=== PATIENT | female | born 1995 | race Caucasian/White ===

== ENCOUNTER 2016-09-15 07:04 | Inpatient (IN) | payer OTHER ==
[~2016-09-15] VITALS: Ht 160 cm; Wt 85.9 kg
--- OUTSIDE RECORDS SUMMARY | 2016-09-19 06:17 | XMS REPORT | Continuity of Care Document ---
Author Author [facility] Organization [facility] Address Unknown Phone Unavailable Allergies, Adverse Reactions, Alerts Substance Reaction Severity Status No Known Drug Allergies Unknown Active Medications Medication Instructions Dosage Effective Dates (start - stop) Status Comments Rhophylac 1,500 unit (300 mcg)/2 mL injection syringe - Active VITAMINS (unknown strength) take 1 tablet by oral route every day - Active Problems Condition Effective Dates (start - stop) Clinical Status Encntr for suprvsn of normal first preg, third trimester - 30 weeks gestation of - Pap Smear Screening, Cervix - Routine Care, Primigravida 10 weeks gestation of - Encntr for suprvsn of normal first preg, third trimester - 28 weeks gestation of - Type AB blood, Rh negative - Maternal care for oth abnlt of cervix, second trimester - Encounter for screening of mother - weeks gestation of - Encntr for suprvsn of normal first preg, second trimester - 24 weeks gestation of - Routine Care, Primigravida 14 weeks gestation of - Routine Care, Primigravida 17 weeks gestation of - Encounter for anatomic survey Encntr for suprvsn of normal first preg, second trimester - 20 weeks gestation of - Encntr for suprvsn of normal first preg, third trimester - Encounter for screening of mother - 32 weeks gestation of - Asthma Active Procedures Procedure Date OB Visit No Charge Results Test Name Date and Time Measure Units Reference Range Abnormal Flag Comments Unknown Advance Directives Directive Yes / No Effective Date File Name Unknown Encounters Encounter Description Practice Location Reason(s) For Visit Diagnoses Date Provider Care Team Members [facility] [address], [place], [id number], tel: [phone] [place] Encntr for suprvsn of normal first preg, third trimesterEncounter for screening of [id number] weeks gestation of Laci Morgan [address] [place] [address] Vance Lindquist, [place], [place] , [address], [place]. tel:[phone] [facility] [address] [place] [address], [id number], [place] tel: [phone] [place] Encntr for suprvsn of normal first preg, third xmmkryzqh94 weeks gestation of Laci Morgan [address] [place] [address] Vance Lindquist, [place], [place], [address], [place]. tel:[phone] [facility] [address], [place], [address], [place] tel: [phone] [place] Encntr for suprvsn of normal first preg, third weeks gestation of pregnancyType AB blood, Rh negative Laci Morgan [address] [place] [address] V[address]quist, [place], [place], [address], [place]. tel: [phone] Referring Provider: Loy Chester [address] [place] [address] Dr Shepard , [place], [place], [id number]. tel:[phone] [facility] [address], [place], [address], [place] tel: [phone] [place] Encntr for suprvsn of normal first preg, second weeks gestation of Laci Morgan [address] [place] [address] Vance Lindquist, [place], [place], [address], [place]. tel:[phone] [facility] [address], [place], [address], [place] tel: [phone] [place] Encntr for suprvsn of normal first preg, second uchytjeqv63 weeks gestation of Laci Morgan [address] [place] [address] Vance Lindquist, [place], [address], [place]. tel:[phone] Referring Provider: oLy Chester [address] [place] [address] Dr Shepard, [place], [address]. tel:[phone] [facility], [address], [place], [place], [address], [place] tel: [phone] [place] Ultrasound Maternal care for oth abnlt of cervix, second trimesterEncounter for screening of rtegrm23 weeks gestation of Laci Morgan [address] [place] [address] Vance Lindquist, [place], [address], [place]. tel:[phone] [facility], [address], [place], [place], [address], [place] tel: [phone] [place] Routine Care, Zjedxafubxdq86 weeks gestation of pregnancyEncounter for anatomic survey Laci Granado[address] V[place], [place], [address], [place]. tel:[phone] [facility], [address], [place], [place], [address], [place] tel: [phone] [place] Routine Care, Msdpwufvbnyp20 weeks gestation of Laci Granado[address] [place], [place] , [address], [place]. tel:[phone] [facility], [address], [place], [place], [address], [place] tel: [phone] [place] Pap Smear Screening, CervixRoutine Care, Wnmpztqkbvid38 weeks gestation of Laci Granado[address] Vance Lindquist, [place], [address], [place]. tel:[phone] Family History Family Member Diagnosis Age At Onset No family history of Colon Cancer No family history of Thyroid Disorder No family history of Pulmonary Embolism No family history of Ovarian Cancer Paternal Grandmother Diabetes No family history of Kidney Disease No family history of Uterine Cancer Mother Hypertension No family history of Venous Thrombosis No family history of Stroke No family history of Breast Cancer No family history of Osteoporosis Maternal Grandmother Diabetes No family history of Lung Disease No family history of Epilepsy No family history of Cardiovascular Disease Immunizations Vaccine Date Status Comments Rhophylac completed Source: New Immunization Record Influenza, injectable, quadrivalent, preservative free, 3 yrs or older 2015 completed Note: work ; Source: Other Provider Payers Payer name Insurance type Covered alliance party ID Authorization(s) [employer] CI [id number] [employer] CI [id number] Social History Type Description Quantity Date Captured Alcohol Use Details No Caffeine Use Details Unknown Tobacco Use Status Unknown Smoking Status Never smoker Vital Signs Date / Time: Height Weight BMI Pulse Rate Blood Pressure Temperature Respiratory Rate Body Surface Area Head Circumference BMI percentile 10:28 AM 173.00 lbs 32.16 kg/meter(2) 128/71 mm[Hg] Chief Complaint And Reason For Visit Unknown Chief Complaint And Reason For Visit Reason For Referral Reason For Referral Unknown Plan Of Care Date Type Action Status Appointment Gregoria Poole BOOKED Appointment Gregoria Poole BOOKED Future Order: Lab Order Pap Smear With HPV Reflex If ASCUS ( [id number]) Ordered Future Order: Radiology Order Complete OB Ultrasound > 14 Weeks ( [id number]) Ordered Future Order: Radiology Order Complete OB Ultrasound > 14 Weeks ( [id number]) Ordered Date Type Problem Goal Intervention Status Start Date Unknown. History Of Present Illness Encounter Date Complaint History Of Present Illness This patient has no known history of present illness Functional Status Encounter Date Functional Assessment Cognitive Assessment Unknown Medications Administered Medication Instructions Dosage Effective Dates (start - stop) Status Comments Drug Treatment Unknown Instructions Date Instruction Additional Information hospital registration genetic testing new ob handbook Zika virus assessment & precautions environmental / work hazards travel use of any medications (including supplements, vitamins, herbs, OTC drugs) domestic violence seat belt use childbirth classes / hospital facilities HIV and other routine tests risk factors identified by history anticipated course of care nutrition and weight gain counseling, special diet toxoplasmosis precautions (cats / raw meat) sexual activity exercise indications for ultrasound influenza vaccine
--- OUTSIDE RECORDS SUMMARY | 2016-09-19 06:17 | XMS REPORT | Continuity of Care Document ---
Author Author [facility] Organization [facility] Address Unknown Phone Unavailable Allergies, Adverse Reactions, Alerts Substance Reaction Severity Status No Known Drug Allergies Unknown Active Medications Medication Instructions Dosage Effective Dates (start - stop) Status Comments VITAMINS (unknown strength) take 1 tablet by oral route every day - Active Problems Condition Effective Dates (start - stop) Clinical Status Pap Smear Screening, Cervix - Routine Care, Primigravida 10 weeks gestation of - Routine Care, Primigravida 14 weeks gestation of - Routine Care, Primigravida Encounter for anatomic survey 17 weeks gestation of - Encntr for suprvsn of normal first preg, second trimester - 20 weeks gestation of - Asthma Active Procedures Procedure Date Unknown Results Test Name Date and Time Measure Units Reference Range Abnormal Flag Comments Unknown Advance Directives Directive Yes / No Effective Date File Name Unknown Encounters Encounter Description Practice Location Reason(s) For Visit Diagnoses Date Provider Care Team Members [facility], [address], [place], [place], [address], [place] tel: [phone] [place] Encntr for suprvsn of normal first preg, second [id number] weeks gestation of Laic Granado. [address] [place] [address] [address], [address], [place]. tel:[phone] Referring Provider: Loy Chester [address] [place] [address] Dr Shepard, [place], [address]. tel:[phone] [facility], [address], [place], [place], [address], [place] tel: [phone] [place] Laci Granado. [address] [place] [address] Vance Lindquist, [place], [id number], [place]. tel:[phone] [facility], [address], [place], [place], [address], [place] tel: [phone] [place] Routine Care, PrimigravidaEncounter for anatomic esmhzf58 weeks gestation of [address] V[place] Lindquist, [place], [id number], [place]. tel:[phone] [facility], [address], [place], [place], [address], [place] tel: [phone] [place] Routine Care, Gbnknunqgprw22 weeks gestation of [address] [place] Lindquist, [place] , [address], [place]. tel:[phone] [facility], [address], [place], [place], [address], [place] tel: [phone] [place] Pap Smear Screening, CervixRoutine Care, Cbhahyfmtpbt33 weeks gestation of [address] V[place] Lindquist, [place], [address], [place]. tel:[phone] Family History Family Member Diagnosis Age At [...] Cardiovascular Disease Immunizations Vaccine Date Status Comments Influenza, injectable, quadrivalent, preservative free, 3 yrs or older 2015 completed Note: work ; Source: Other Provider Payers Payer name Insurance type Covered libertarian ID Authorization(s) Edwin [id number] [facility] Social History Type Description Quantity Date Captured Unknown Vital Signs Date / Time: Height Weight BMI Pulse Rate Blood Pressure Temperature Respiratory Rate Body Surface Area Head Circumference BMI percentile Unknown Chief Complaint And Reason For Visit Unknown Chief Complaint And Reason For Visit Reason For Referral Reason For Referral Unknown Plan Of Care Date Type Action Status Appointment Poole Gregoria BOOKED Future Order: Lab Order Pap Smear With HPV Reflex If ASCUS ( [id number]) Ordered Date Type Problem Goal Intervention Status [...]
--- OUTSIDE RECORDS SUMMARY | 2016-09-19 06:18 | XMS REPORT | Continuity of Care Document ---
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 handling/transport OB Prepayment Agreement Infct antign, chlamydia trac, ampl Neisseria Gonorrhoeae, Amplification OB Panel With An HIV Urine Culture Venpnctr fngr/heel/ear stick routne Cult, bactr, ident isolate, urine Results Test Name Date and Time Measure Units Reference Range Abnormal Flag Comments Panel Description: Hepatitis B virus surface Ag [Presence] in Serum or Plasma by Immunoassay WHITE BLOOD CELL COUNT 10:39:00 10.0 Thousand/uL 3.8-10.8 N RED BLOOD CELL COUNT 10:39:00 3.82 Million/uL 3.80-5.10 N HEMOGLOBIN 10:39:00 11.8 g/dL 11.7-15.5 N HEMATOCRIT 10:39:00 34.9 % 35.0-45.0 L MCV 10:39:00 91.4 fL 80.0-100.0 N MCH 10:39:00 30.9 pg 27.0-33.0 N MCHC 10:39:00 33.8 g/dL 32.0-36.0 N RDW 10:39:00 13.9 % 11.0-15.0 N PLATELET COUNT 10:39:00 208 Thousand/uL 140-400 N MPV 10:39:00 9.0 fL 7.5-11.5 N ABSOLUTE NEUTROPHILS 10:39:00 7240 cells/uL 1217-6908 N ABSOLUTE LYMPHOCYTES 10:39:00 1790 cells/uL 850-3900 N ABSOLUTE MONOCYTES 10:39:00 610 cells/uL 200-950 N ABSOLUTE EOSINOPHILS 10:39:00 330 cells/uL 15-500 N ABSOLUTE BASOPHILS 10:39:00 30 cells/uL 0-200 N NEUTROPHILS 10:39:00 72.4 % N LYMPHOCYTES 10:39:00 17.9 % N MONOCYTES 10:39:00 6.1 % N EOSINOPHILS 10:39:00 3.3 % N BASOPHILS 10:39:00 0.3 % N ANTIBODY SCREEN, RBC W/REFL ID, TITER AND AG 10:39:00 NO ANTIBODIES DETECTED N Reference range No antibodies detected This assay is a screening test for the detection of red blood cell antibodies. The test is not to be used for pretransfusion screening or for the medical management of an alloimmunized . ABO GROUP 10:39:00 AB RH TYPE 10:39:00 RH (D) NEGATIVE RPR (DX) W/REFL TITER AND CONFIRMATORY TESTING 10:39:00 NON- REACTIVE NON-REACTIVE N HEPATITIS B SURFACE ANTIGEN 10:39:00 NON-REACTIVE NON- REACTIVE N RUBELLA ANTIBODY (IGG) 10:39:00 3.63 N Value Interpretation ----- < or= 0.90 Not consistent with Immunity 0.91-1.09 Equivocal > or=1.10 Consistent with Immunity The presence of rubella IgG antibody suggests immunization or past or current infection withrubella virus.Test performed at [facility] [id number] [place] [address]Rdblhqcu: FABIAN CHRISTINE DO,MPH Panel Description: HIV 1/2 ANTIGEN/ANTIBODY,FOURTH GENERATION W/RFL HIV AG/AB, 4TH GEN 10:39:00 NON-REACTIVE NON-REACTIVE N HIV -1 antigen and HIV-1/HIV-2 antibodies were notdetected. There is no laboratory evidence of HIVinfection. PLEASE NOTE: This information has been disclosed toyou from records whose confidentiality may beprotected by state law. If your state requires suchprotection, then the state law prohibits you frommaking any further disclosure of the informationwithout the specific written consent of the personto whom it pertains, or as otherwise permitted by law.A general authorization for the release of medical orother information is NOT sufficient for this purpose. For additional information please refer tohttp:// education.s0cket/faq/DCB000(This link is being provided for informational/educational purposes only.) The performance of this assay has not been clinicallyvalidated in patients less than 2 years old. REPORT COMMENT: FASTING:NOTest performed at [facility] [id number] [place] [address]Phmpkqmn: FABIAN CHRISTINE DO,MPH Panel Description: CULTURE, URINE, ROUTINE CULTURE, URINE, ROUTINE 10:51:00 SEE NOTE CULTURE, URINE, ROUTINE MICRO NUMBER: [id number] TEST STATUS: FINAL SPECIMEN SOURCE: URINE, CLEAN CATCH SPECIMEN QUALITY: ADEQUATE RESULT: Single organism less than 10,000 CFU/mL isolated. These organisms, commonly found on external and internal genitalia, are considered colonizers. No further testing performed.REPORT COMMENT:RFASTING:UNKNOWNTest performed at [facility] [id number] [place] [id number]: FABIAN CHRISTINE DO,MPH Panel Description: Chlamydia trachomatis DNA [Presence] in Unspecified specimen by Probe and target amplification method CHLAMYDIA TRACHOMATIS RNA, [facility] 10:52:00 NOT DETECTED NOT DETECTED N NEISSERIA GONORRHOEAE RNA, [facility] 10:52:00 NOT DETECTED NOT DETECTED N [id number] 10:52:00 SEE NOTE This test was performed using the APTIMA COMBO2 Assay([employer] The analytical performance characteristics of this assay, when used to test SurePath specimens havebeen determined by [employer]. REPORT COMMENT:FASTING:UNKNOWNTest performed at [facility] [id number] [place] [address]Cfcvtxyu: FABIAN CHRISTINE DO,MPH Advance Directives Directive Yes / No Effective Date File Name Unknown Encounters Encounter Description Practice Location Reason(s) For Visit Diagnoses Date Provider Care Team [facility] [address], [place], [address], [place] tel: [phone] [place] [facility], [facility] Uzuoxxdoupzk30 weeks gestation of [address] , [address], [place], [address], [place]. tel:[phone] Family History Family Member Diagnosis Age At [...] Cardiovascular Disease Immunizations Vaccine Date Status Comments Unknown Payers Payer name Insurance type Covered alliance party ID Authorization(s) [facility] [id number] Social History Type Description Quantity Date Captured Alcohol Use Details No Caffeine Use Details No Tobacco Use Status Never smoked tobacco Smoking Status Never smoker Vital Signs Date / Time: Height Weight BMI Pulse Rate Blood Pressure Temperature Respiratory Rate Body Surface Area Head Circumference BMI percentile /10:36:00 142.90 lbs 26.56 kg/meter(2) 130/72 mm[Hg] Chief Complaint And Reason For Visit Unknown Chief Complaint And Reason For Visit Reason For Referral Reason For Referral Unknown Plan Of Care Date Type Action Status Appointment Gregoria Poole BOOKED Future Order: Lab [...]
--- OUTSIDE RECORDS SUMMARY | 2016-09-19 06:18 | XMS REPORT | Continuity of Care Document ---
Author Author [facility] Organization [facility] Address Unknown Phone Unavailable Allergies, Adverse Reactions, Alerts Substance Reaction Severity Status No Known Drug Allergies Unknown Active Medications Medication Instructions Dosage Effective Dates (start - stop) Status Comments VITAMINS (unknown strength) take 1 tablet by oral route every day - Active Problems Condition Effective Dates (start - stop) Clinical Status Routine Care, Primigravida Encounter for anatomic survey 17 weeks gestation of - Pap Smear Screening, Cervix - Routine Care, Primigravida 10 weeks gestation of - Routine Care, Primigravida 14 weeks gestation of - Asthma Active Procedures Procedure Date OB Visit No Charge Results Test Name Date and Time Measure Units Reference Range Abnormal Flag Comments Unknown Advance Directives Directive Yes / No Effective Date File Name Unknown Encounters Encounter Description Practice Location Reason(s) For Visit Diagnoses Date Provider Care Team Members [facility] [employer] [facility], [address], [place], [place], [address], [place] tel: [phone] [place] Routine Care, PrimigravidaEncounter for anatomic dbyyrc16 weeks gestation of [address] V[address] Lindquist, [place], [place], [address], [place]. tel:[phone] [facility], [address], [place], [place], [address], [place] tel: [phone] [place] Routine Care, Lkemvjsenobs79 weeks gestation of [address] V[place] Lindquist, [place], [place] , [address], [place]. tel:[phone] [facility] [employer] [facility], [address], [place], [place], [address], [place] tel: [phone] [place] Pap Smear Screening, CervixRoutine Care, Btwblzgqhpsi60 weeks gestation of Laci [address] [place] Lindquist, [place], [address], [place]. tel:[phone] Family History Family Member Diagnosis Age At [...] Unknown Payers Payer name Insurance type Covered green party ID Authorization(s) [facility] [id number] [facility] Social History Type Description Quantity Date Captured Alcohol Use Details No Caffeine Use Details No Tobacco Use Status Unknown Smoking Status Never smoker Vital Signs Date / Time: Height Weight BMI Pulse Rate Blood Pressure Temperature Respiratory Rate Body Surface Area Head Circumference BMI percentile /14:00:00 148.60 lbs 27.62 kg/meter(2) 126/3 mm[Hg] /14:07:00 148.60 lbs 27.62 kg/meter(2) 126/73 mm[Hg] Chief Complaint And Reason For Visit [...]
--- OUTSIDE RECORDS SUMMARY | 2016-09-19 06:18 | XMS REPORT | Continuity of Care Document ---
Author Author [facility] Organization [facility] [address] [place] [id number] Phone Allergies, Adverse Reactions, Alerts Substance Reaction Severity Status No Known Drug Allergies Unknown Active Medications Medication Instructions Dosage Effective Dates (start - stop) Status Comments VITAMINS (unknown strength) take 1 tablet by oral route every day - Active Problems Condition Effective Dates (start - stop) Clinical Status Maternal care for oth abnlt of cervix, second trimester - Encounter for screening of mother - 20 weeks gestation of - Pap Smear Screening, [...] of - Asthma Active Procedures Procedure Date Ultrasound exam of preg uterus, complete Results Test Name Date and Time Measure Units Reference Range Abnormal Flag Comments Unknown Advance Directives Directive Yes / No Effective Date File Name Unknown Encounters Encounter Description Practice Location Reason(s) For Visit Diagnoses Date Provider Care Team Members [facility] [place], [address], [place], [place], [address], [place] tel: [phone] [place] Encntr for suprvsn of normal first preg, second ceiyphpgs57 weeks gestation of Lcai Morgan [address] [place] [address] [address], [place], [place], [address], [place]. tel:[phone] [facility], [address], [place], [place], [address], [place] tel: [phone] [place] Encntr for suprvsn of normal first preg, second zwvzipkez21 weeks gestation of Laci Morgan [address] [place] [address] [address] Lindquist, [place], [address], [place]. tel:[phone] Referring Provider: Loy Chester [address] [place] [address] Dr Shepard, [place], [place], [address]. tel:[phone] [facility], [address], [place], [address], [place] tel: [phone] [place] Ultrasound Maternal care for oth abnlt of cervix, second trimesterEncounter for screening of wgmygc97 weeks gestation of Laci Morgan [address] [place] [address] Vance L[address]quist, [place], [place], [address], [place]. tel:[phone] [facility], [address], [place], [place], [address], [place] tel: [phone] [place] Routine Care, PrimigravidaEncounter for anatomic uulnrc33 weeks gestation of Laci Morgan [address] [place] [address] [address] Lind[address], [place], [place], [address], [place]. tel:[phone] [facility] [address], [place], [address], [place] tel: [phone] [place] Routine Care, Yhywgwarcloq52 weeks gestation of Laci Morgan [address] [place] [address] [address] Lindquist, [place], [place] , [address], [place]. tel:[phone] [facility], [address], [place], [place], [address], [place] tel: [phone] [place] Pap Smear Screening, CervixRoutine Care, Rvqsespjrfmo04 weeks gestation of Laci Morgan [address] [place] [address] [address], [place], [place], [address], [place]. tel:[phone] Family History Family Member Diagnosis Age At [...] Provider Payers Payer name Insurance type Covered republican ID Authorization(s) [facility] [id number] [facility] Social History Type Description Quantity Date Captured [...] Status Appointment Gregoria Poole BOOKED Future Order: Radiology Order Complete OB Ultrasound > 14 Weeks ( [id number]) Ordered Future Order: Radiology Order Complete OB Ultrasound > 14 Weeks ( [id number]) Ordered Future Order: Lab Order Pap Smear With [...]
--- OUTSIDE RECORDS SUMMARY | 2016-09-19 06:18 | XMS REPORT | Continuity of Care Document ---
Author Author [facility] Organization [facility] Address Unknown Phone Unavailable Allergies, Adverse [...] of normal first preg, third trimester - 37 weeks gestation of - Pap Smear Screening, Cervix - Routine Care, Primigravida 10 weeks gestation of - Encntr for suprvsn of normal first preg, third trimester - 28 weeks gestation of - Type AB blood, Rh negative - Maternal care for oth abnlt of cervix, second trimester - Encounter for screening of mother - 20 weeks gestation of - Maternal care for oth abnlt of cervix, third trimester - 34 weeks gestation of - Encntr for suprvsn [...] trimester - 30 weeks gestation of - Encntr for suprvsn of normal first preg, third trimester - Encounter for screening of mother - 32 weeks gestation of - Encntr for suprvsn of normal first preg, third trimester - 34 weeks gestation of - Encntr for suprvsn of normal first preg, third trimester - Encounter for screening of mother - 36 weeks gestation of - Encntr for suprvsn of normal first preg, third trimester - 38 weeks gestation of - Encntr for suprvsn of normal first preg, third trimester - 39 weeks gestation of - Asthma Active Procedures Procedure Date OB Visit No Charge Results Test Name Date and Time Measure Units Reference Range Abnormal Flag Comments Unknown Advance Directives Directive Yes / No Effective Date File Name Unknown Encounters Encounter Description Practice Location Reason(s) For Visit Diagnoses Date Provider Care Team Members [facility], [address], [place], [place], [address], [place] tel: [phone] [place] Encntr for suprvsn of normal first preg, third qnbqwupag80 weeks gestation of [place] Morgan [address] [place] [address] V[address] Lindquist, [place], [place], [address], [place]. tel:[phone] Referring Provider: Parris Dillard [address] [place] [address] Dr Shepadr, [place], [place] , [id number]. tel:[phone] [facility], [address], [place], [place], [address], [place] tel: [phone] [place] Encntr for suprvsn of normal first preg, third riclelasv09 weeks gestation of [place] Morgan [address] [place] [address] V[place] Lindquist [place], [place], [address], [place]. tel:[phone] Referring Provider: Parris Dillard [address] [place] [address] Dr Shepard [place], [place] , [address]. tel:[phone] [facility], [address], [place], [place], [address], [place] tel: [phone] [place] Encntr for suprvsn of normal first preg, third agaqdkesk45 weeks gestation of [place] Morgan [address] [place] [address] V[place] Lindquist, [place], [place], [address], [place]. tel:[phone] Referring Provider: Parris Dillard [address] [place] [address] Dr Shepard, [place], [place] , [address]. tel:[phone] [facility], [address], [place], [place], [address], [place] tel: [phone] [place] Encntr for suprvsn of normal first preg, third trimesterEncounter for screening of atuiwk75 weeks gestation of Laci Granado. [address] [place] [address] V[place] Lindquist, [place] , [address], [place]. tel:[phone] Referring Provider: Loy Chester [address] [place] [address] Dr Shepard, [place], [place], [address]. tel:[phone] [facility], [address], [place], [place], [address], [place] tel: [phone] [place] Encntr for suprvsn of normal first preg, third zbdusduee02 weeks gestation of L[place] Granado. [address] [place] [address] V[place] Lindquist, [place], [address], [place]. tel:[phone] Referring Provider: Parris Dillard [address] [place] [address] Dr Shepard, [place] , [address]. tel:[phone] [facility], [address], [place], [place], [address], [place] tel: [phone] [place] Ultrasound Maternal care for oth abnlt of cervix, third csmsczmoq00 weeks gestation of Laci Morgan [address] [place] [address] V[place] Lindquist, [place], [address], [place]. tel:[phone] Referring Provider: Parris Dillard [address] [place] [address] Dr Shepard, [place], [place] , [address]. tel:[phone] [facility] [address], [place], [address], [place] tel: [phone] [place] Encntr for suprvsn of normal first preg, third trimesterEncounter for screening of weeks gestation of Laci Morgan [address] [place] [address] V[place] Lindquist, [place] , [address], [place]. tel:[phone] [facility], [address], [place], [address], [place] tel: [phone] [place] Encntr for suprvsn of normal first preg, third yxgfetvat56 weeks gestation of Laci Morgan [address] [place] [address] Vance Lindquist, [place], [address], [place]. tel:[phone] [facility] [address], [place], [address], [place] tel: [phone] [place] Encntr for suprvsn of normal first preg, third unfjpiwjh06 weeks gestation of pregnancyType AB blood, Rh negative Laci Morgan [address] [place] [address] Vance Lindquist, [place], [place], [address], [place]. tel: [phone] Referring Provider: Loy Chester, [address] [place] [address] Dr Shepard , [place], [address]. tel:[phone] [facility] [address], [place], [address], [place] tel: [phone] [place] Encntr for suprvsn of normal first preg, second imcprblxg17 weeks gestation of Laci Morgan [address] [place] [address] Vance Lindquist, [place], [address], [place]. tel:[phone] [facility], [address], [place], [address], [place] tel: [phone] [place] Encntr for suprvsn of normal first preg, second zkhtmylkx95 weeks gestation of Laci Granado[address] [place] Lindquist, [place], [address], [place]. tel:[phone] Referring Provider: Loy Chester [address] [place] [address] Dr Shepard, [place], [address]. tel:[phone] [facility], [address], [place], [place], [address], [place] tel: [phone] [place] Ultrasound Maternal care for oth abnlt of cervix, second trimesterEncounter for screening of gykgjl34 weeks gestation of Laci Granado[address] V[place] Lindquist, [place], [address], [place]. tel:[phone] [facility], [address], [place], [place], [address], [place] tel: [phone] [place] Routine Care, Qdxjdrsfpjse84 weeks gestation of pregnancyEncounter for anatomic survey Laci Granado[address] [place] Linduqist, [place], [address], [place]. tel:[phone] [facility], [address], [place], [place], [address], [place] tel: [phone] [place] Routine Care, Gwciilypveqe26 weeks gestation of Laci Granado[address] [place], [place] , [address], [place]. tel:[phone] [facility], [address], [place], [place], [address], [place] tel: [phone] [place] Pap Smear Screening, CervixRoutine Care, Yrctzwmaiars25 weeks gestation of Laci Granado[address] [place], [place], [address], [place]. tel:[phone] Family History Family Member Diagnosis Age At [...] Cardiovascular Disease Immunizations Vaccine Date Status Comments Tdap completed Source: New Immunization Record Rhophylac completed Source: New Immunization Record Influenza, injectable, quadrivalent, preservative free, 3 yrs or older 2015 completed Note: work ; Source: Other Provider Payers Payer name Insurance type Covered green party ID Authorization(s) Aetna CI [id number] Aetna CI [id number] Aetna CI [id number] Social History Type Description Quantity Date Captured Alcohol Use Details No Caffeine Use Details Unknown Tobacco Use Status Unknown Smoking Status Never smoker Vital Signs Date / Time: Height Weight BMI Pulse Rate Blood Pressure Temperature Respiratory Rate Body Surface Area Head Circumference BMI percentile 3:10 PM 184.80 lbs 34.35 kg/meter(2) 125/70 mm[Hg] Chief Complaint And Reason For Visit Unknown Chief Complaint And Reason For Visit Reason For Referral Reason For Referral Unknown Plan Of Care Date Type Action Status Future Order: Lab Order Pap Smear With HPV Reflex If ASCUS ( [id number]) Ordered Future Order: Radiology Order Complete OB Ultrasound > 14 Weeks ( [id number]) Ordered Future Order: Radiology Order Complete OB Ultrasound > 14 Weeks ( [id number]) Ordered Future Order: Radiology Order Ultrasound OB Follow-up ([id number]) Ordered Date Type Problem Goal Intervention Status [...]
--- OUTSIDE RECORDS SUMMARY | 2016-09-19 06:18 | XMS REPORT | Continuity of Care Document ---
Author Author [facility] Organization [facility] Address Unknown Phone Unavailable Allergies, Adverse [...] trimester - 34 weeks gestation of - Pap Smear Screening, Cervix - Routine Care, Primigravida 10 weeks gestation of - Encntr for suprvsn of normal first preg, third trimester - 28 weeks gestation of - Type AB blood, Rh negative - Maternal care for oth abnlt of cervix, second trimester - Encounter for screening of mother - 20 weeks gestation of - Encntr [...] trimester - 30 weeks gestation of - Asthma Active Procedures Procedure Date Ultrasnd preg uterus, flwup/repeat Results Test Name Date and Time Measure Units Reference Range Abnormal Flag Comments Unknown Advance Directives Directive Yes / No Effective Date File Name Unknown Encounters Encounter Description Practice Location Reason(s) For Visit Diagnoses Date Provider Care Team Members [facility], [address], [place], [place], [address], [place] tel: [phone] [place] Encntr for suprvsn of normal first preg, third trimesterEncounter for screening of edekxr56 weeks gestation of Laci Morgan [address] [place] [address] Vance Lindquist, [place], [place] , [address], [place]. tel:[phone] Referring Provider: Loy Chester [address] [place] [address] Dr Shepard, [place], [place], [address]. tel:[phone] [facility], [address], [place], [place], [address], [place] tel: [phone] [place] Encntr for suprvsn of normal first preg, third iymfsmtlg90 weeks gestation of Laci Morgan [address] [place] [address] Vance Lindquist, [place], [place], [address], [place]. tel:[phone] Referring Provider: Parris Dillard [address] [place] [address] Dr Shepard, [place], [place] , [address]. tel:[phone] [facility], [address], [place], [place], [address], [place] tel: [phone] [place] Ultrasound Maternal care for oth abnlt of cervix, third sqncqcven06 weeks gestation of Laci Morgan [address] [place] [address] V[place]quist [place], [address], [place]. tel:[phone] Referring Provider: Parris Dillard [address] [place] [address] Dr Shepard, [place], [place] , [address]. tel:[phone] [facility], [address], [place], [address], [place] tel: [phone] [place] Encntr for suprvsn of normal first preg, third trimesterEncounter for screening of weeks gestation of Laci Morgan [address] [place] [address] Vance Lindquist, [place], [place] , [address], [place]. tel:[phone] [facility] [address], [place], [address], [place] tel: [phone] [place] Encntr for suprvsn of normal first preg, third bxjzkipiv68 weeks gestation of Laci Morgan [address] [place] [address] Vance Lindquist, [place], [place], [address], [place]. tel:[phone] [facility], [address], [place], [address], [place] tel: [phone] [place] Encntr for suprvsn of normal first preg, third fgpyfjplt44 weeks gestation of pregnancyType AB blood, Rh negative Laci Morgan [address] [place] [address] Vance Lindquist, [place], [place], [address], [place]. tel: [phone] Referring Provider: Loy Chester [address] [place] [address] Dr Shepard , [place], [place], [address]. tel:[phone] [facility], [address], [place], [address], [place] tel: [phone] [place] Encntr for suprvsn of normal first preg, second fboeeewqx91 weeks gestation of Laci Morgan [address] [place] [address] Vance Lindquist, [place], [place], [address], [place]. tel:[phone] [facility], [address], [place], [address], [place] tel: [phone] [place] Encntr for suprvsn of normal first preg, second ndldcotkj91 weeks gestation of Laci Morgan [address] [place] [address] Vance Lindquist, [place], [address], [place]. tel:[phone] Referring Provider: Loy Chester [address] [place] [address] Dr Shepard, [place], [place], [address]. tel:[phone] [facility], [address], [place], [address], [place] tel: [phone] [place] Ultrasound Maternal care for oth abnlt of cervix, second trimesterEncounter for screening of pnylis34 weeks gestation of Laci Morgan [address] [place] [address] Vance Lindquist, [place], [place], [address], [place]. tel:[phone] [facility], [address], [place], [address], [place] tel: [phone] [place] Routine Care, PrimigravidaEncounter for anatomic rqjips49 weeks gestation of Laci Morgan [address] [place] [address] V[place] Lindquist, [place], [address], [place]. tel:[phone] [facility], [address], [place], [place], [address], [place] tel: [phone] [place] Routine Care, Ivaaoazupvng30 weeks gestation of Laci Morgan [address] [place] [address] V[place] Lindquist, [place] , [address], [place]. tel:[phone] [facility] [address], [place], [place], [address], [place] tel: [phone] [place] Pap Smear Screening, CervixRoutine Care, Cjbmrwwlytjp11 weeks gestation of Laci Morgan [address] [place] [address] V[place] Lindquist, [place], [address], [place]. tel:[phone] Family History Family Member Diagnosis Age At [...] Covered alliance party ID Authorization(s) [employer]et[employer] CI [id number] Aetna CI [id number] Aetna CI [id number] Social History Type Description Quantity Date Captured [...] Gregoria Poole BOOKED Future Order: Radiology Order Ultrasound OB Follow-up ([id number]) Ordered Future Order: Lab Order Pap Smear With HPV Reflex If ASCUS ( WPMPap1) Ordered Future Order: Radiology Order Complete OB Ultrasound > 14 Weeks ( [id number]) Ordered Future Order: Radiology Order Complete OB Ultrasound > 14 Weeks ( [id number]) Ordered Date Type Problem Goal Intervention Status [...]
--- OUTSIDE RECORDS SUMMARY | 2016-09-19 06:18 | XMS REPORT | Continuity of Care Document ---
Author Author [facility] Organization [facility] Address Unknown Phone Unavailable Allergies, Adverse [...] mother - 36 weeks gestation of - Pap Smear Screening, Cervix - Routine Care, Primigravida 10 weeks gestation of - Encntr for suprvsn of normal first preg, third trimester - Type AB blood, Rh negative - 28 weeks gestation of - Maternal care for [...] trimester - 37 weeks gestation of - Encntr for suprvsn of normal first preg, third trimester - 34 weeks gestation of - Encntr for suprvsn of normal first preg, third trimester - 39 weeks gestation of - Encntr for suprvsn of normal first preg, third trimester - 30 weeks gestation of - Asthma Active Procedures Procedure Date Immuniz admnin, 1 vac, sngl/combo 19 Yrs + TDAP VACCINE >7 IM OB Visit No Charge Cult, pathgnc orgnsm, screen Results Test Name Date and Time Measure Units Reference Range Abnormal Flag Comments Panel Description: STREPTOCOCCUS, GROUP B CULTURE STREPTOCOCCUS, GROUP B CULTURE 15:44:00 SEE NOTE STREPTOCOCCUS, GROUP B CULTURE MICRO NUMBER: [id number] TEST STATUS: FINAL SPECIMEN SOURCE: VAGINAL/ANORECTAL SPECIMEN QUALITY: ADEQUATE RESULT: No group B Streptococcus isolatedREPORT COMMENT:FASTING: UNKNOWNTest performed at [facility] [id number] [place] [address]Stqdedhv: FABIAN CHRISTINE DO,MPH Advance Directives Directive Yes / No Effective Date File Name Unknown Encounters Encounter Description Practice Location Reason(s) For Visit Diagnoses Date Provider Care Team Members [facility], [address], [place], [place], [address], [place] tel: [phone] [place] Encntr for suprvsn of normal first preg, third hgufoaoas37 weeks gestation of Laci Granado[address] , [address], [place], [address], [place]. tel:[phone] Referring Provider: Parris Dillard [address] [place] [address] Dr Shepard, [place] , [address]. tel:[phone] [facility] [address] [place] [address], [id number], [place] tel: [phone] [place] Encntr for suprvsn of normal first preg, third mrhnslojr42 weeks gestation of Laci Morgan [address] [place] [address] [place], [address], [place]. tel:[phone] Referring Provider: Parris Dillard[address] Shepard, [place], [place] , [address]. tel:[phone] [facility] [address] [facility], [address], [place] tel: [phone] [place] Encntr for suprvsn of normal first preg, third otrtaamre33 weeks gestation of Laci Morgan [address] [place] [address] [place], [address], [place]. tel:[phone] Referring Provider: Parris Dillard [address] [place] [address] [place] , [address]. tel:[phone] [facility] [address], [place], [address], [place] tel: [phone] [place] Encntr for suprvsn of normal first preg, third trimesterEncounter for screening of ymmcld42 weeks gestation of Laci Morgan [address] [place] [address] [place] , [address], [place]. tel:[phone] Referring Provider: Loy Chester [address] [place] [address] [place], [address]. tel:[phone] [facility], [address], [place], [place], [address], [place] tel: [phone] [place] Encntr for suprvsn of normal first preg, third psblkkosu95 weeks gestation of Laci Morgan [address] [place] [address] [place], [address], [place]. tel:[phone] Referring Provider: Parris Dillard [address] [place] [address] Dr Shepard, [place], [place] , [address]. tel:[phone] [facility] [address] [place] [address], [id number], [place] tel: [phone] [place] Ultrasound Maternal care for oth abnlt of cervix, third miaccdyiy00 weeks gestation of Laci Morgan [address] [place] [address] V[place] Lindquist, [place], [place], [address], [place]. tel:[phone] Referring Provider: Parris Dillard [address] [place] [address] Dr Shepard, [place], [place] , [address]. tel:[phone] [facility] [address] [place] [address], [id number], [place] tel: [phone] [place] Encntr for suprvsn of normal first preg, third trimesterEncounter for screening of hadrrz20 weeks gestation of Laci Granado[address] [place] Lindquist, [place], [place] , [address], [place]. tel:[phone] [facility] [address] [place] [address], [id number], [place] tel: [phone] [place] Encntr for suprvsn of normal first preg, third weeks gestation of Laci Morgan [address] [place] [address] V[place] Lindquist, [place], [place], [address], [place]. tel:[phone] [facility] [address], [place], [address], [place] tel: [phone] [place] Encntr for suprvsn of normal first preg, third trimesterType AB blood, Rh ggpxnxpe34 weeks gestation of Laci Morgan [address] [place] [address] V[place] [address]quist, [place], [place], [address], [place]. tel: [phone] Referring Provider: Loy Chester [address] [place] [address] Dr Shepard , [place], [place], [address]. tel:[phone] [facility], [address], [place], [place], [address], [place] tel: [phone] [place] Encntr for suprvsn of normal first preg, second aoxaigvkk77 weeks gestation of Laci Morgan [address] [place] [address] [address], [place], [address], [place]. tel:[phone] [facility], [address], [place], [place], [address], [place] tel: [phone] [place] Encntr for suprvsn of normal first preg, second iyqyhvxey46 weeks gestation of Laci Morgan [address] [place] [address] [address], [place], [address], [place]. tel:[phone] Referring Provider: Loy Chester [address] [place] [address] Dr Shepard, [place], [address]. tel:[phone] [facility], [address], [place], [place], [address], [place] tel: [phone] [place] Ultrasound Maternal care for oth abnlt of cervix, second trimesterEncounter for screening of draitt94 weeks gestation of Laci Morgan [address] [place] [address] [address] [address]quist, [place], [address], [place]. tel:[phone] [facility], [address], [place], [place], [address], [place] tel: [phone] [place] Routine Care, Itlcsistyncm79 weeks gestation of pregnancyEncounter for anatomic survey Laci Morgan [address] [place] [address] [place] Lindquist, [place], [address], [place]. tel:[phone] [facility], [address], [place], [place], [address], [place] tel: [phone] [place] Routine Care, Tclqmhvbnkpz92 weeks gestation of Laci Morgan [address] [place] [address] V[place]quist, [place] , [address], [place]. tel:[phone] [facility] [address], [place], [place], [address], [place] tel: [phone] [place] Pap Smear Screening, CervixRoutine Care, Lkzyhvcfrrgn76 weeks gestation of [place] Granado[address] , [address], [place], [address], [place]. tel:[phone] Family History Family Member Diagnosis Age At [...] name Insurance type Covered republican ID Authorization(s) A[employer]na CI [id number] Aetna CI [id number] Aetna CI [id number] Social History Type Description Quantity Date Captured Alcohol Use Details No Caffeine Use Details Unknown Tobacco Use Status Unknown Smoking Status Never smoker Vital Signs Date / Time: Height Weight BMI Pulse Rate Blood Pressure Temperature Respiratory Rate Body Surface Area Head Circumference BMI percentile 3:16 PM 181.50 lbs 33.73 kg/meter(2) 118/64 mm[Hg] Chief Complaint And Reason For Visit Unknown Chief Complaint And Reason For Visit Reason For Referral Reason For Referral Unknown Plan Of Care Date Type Action Status Future Order: Lab Order Pap Smear With HPV Reflex If ASCUS ( WPMPap1) Ordered Future Order: Radiology Order Complete OB Ultrasound > 14 Weeks ( [id number]) Ordered Future Order: Radiology Order Complete OB Ultrasound > 14 Weeks ( [id number]) Ordered Future Order: Radiology Order Ultrasound OB Follow-up ([id number]) Ordered Date Type Problem Goal Intervention Status [...]
--- OUTSIDE RECORDS SUMMARY | 2016-09-19 06:18 | XMS REPORT | Continuity of Care Document ---
Author Author [facility] Organization [facility] [place] Address Unknown Phone Unavailable Allergies, Adverse Reactions, [...] trimester - 20 weeks gestation of - Pap Smear Screening, Cervix - Routine Care, Primigravida 10 weeks gestation of - Maternal care for oth abnlt of cervix, second trimester - Encounter for screening of mother - 20 weeks gestation of - Routine Care, Primigravida 14 weeks gestation of - Routine Care, Primigravida Encounter for anatomic survey 17 weeks gestation of - Asthma Active Procedures Procedure Date OB Visit No Charge Results Test Name Date and Time Measure Units Reference Range Abnormal Flag Comments Unknown Advance Directives Directive Yes / No Effective Date File Name Unknown Encounters Encounter Description Practice Location Reason(s) For Visit Diagnoses Date Provider Care Team Members [facility] [place], [address], [place], [place], [address], [place] tel: [phone] [place] Encntr for suprvsn of normal first preg, second cqabtgxfm28 weeks gestation of Laci Granado. [address] [place] [address] [address], [place], [place], [address], [place]. tel:[phone] Referring Provider: Loy Chester [address] [place] [address] Dr [address], [place], [place], [address]. tel:[phone] [facility], [address], [place], [place], [address], [place] tel: [phone] [place] Ultrasound Maternal care for oth abnlt of cervix, second trimesterEncounter for screening of weeks gestation of [address] Vance Lindquist, [place], [place], [address], [place]. tel:[phone] [facility], [address], [place], [place], [address], [place] tel: [phone] [place] Routine Care, PrimigravidaEncounter for anatomic jhqkuu60 weeks gestation of [address] Vance Lindquist, [place], [place], [address], [place]. tel:[phone] [facility], [address], [place], [place], [address], [place] tel: [phone] [place] Routine Care, Trvbqusemywo38 weeks gestation of [address] V[address] Lindquist, [place] , [address], [place]. tel:[phone] [facility], [address], [place], [place], [address], [place] tel: [phone] [place] Pap Smear Screening, CervixRoutine Care, Seplrftpqgny55 weeks gestation of [address] Vance Lindquist, [place], [address], [place]. tel:[phone] Family History Family Member Diagnosis Age At [...] name Insurance type Covered republican ID Authorization(s) Edwin CAPONE [id number] [facility] Social History Type Description Quantity Date Captured Alcohol Use Details No Caffeine Use Details No Tobacco Use Status Unknown Smoking Status Never smoker Vital Signs Date / Time: Height Weight BMI Pulse Rate Blood Pressure Temperature Respiratory Rate Body Surface Area Head Circumference BMI percentile /14:24:00 152.90 lbs 28.42 kg/meter(2) 127/75 mm[Hg] Chief Complaint And Reason For Visit Unknown Chief Complaint And Reason For Visit Reason For Referral Reason For Referral Unknown Plan Of Care Date Type Action Status Appointment Gregoria Poole BOOKED Future Order: Lab Order Pap Smear With HPV Reflex If ASCUS ( [id number]) Ordered Future Order: Radiology Order Complete OB Ultrasound > 14 Weeks ( [id number]) Ordered Date Type Problem Goal Intervention Status [...]
--- OUTSIDE RECORDS SUMMARY | 2016-09-19 06:18 | XMS REPORT | Continuity of Care Document ---
Author Author [facility] Organization [facility] Address Unknown Phone Unavailable Allergies, Adverse [...] trimester - 24 weeks gestation of - Pap Smear Screening, [...] Date Provider Care Team Members [facility] [place], [address], [place], [place], [address], [place] tel: [phone] [place] Encntr for suprvsn of normal first preg, second emeirbapq13 weeks gestation of Laci Granado[address] , [address], [place], [place], [address], [place]. tel:[phone] [facility], [address], [place], [place], [address], [place] tel: [phone] [place] Encntr for suprvsn of normal first preg, second dpgbebwqx42 weeks gestation of Laci Morgan [address] [place] [address] [address], [place], [address], [place]. tel:[phone] Referring Provider: Loy Chester [address] [place] [address] Dr Shepard, [place], [address]. tel:[phone] [facility], [address], [place], [place], [address], [place] tel: [phone] [place] Ultrasound Maternal care for oth abnlt of cervix, second trimesterEncounter for screening of weeks gestation of Laci Morgan [address] [place] [address] [address], [place], [address], [place]. tel:[phone] [facility] [address], [place], [place], [address], [place] tel: [phone] [place] Routine Care, PrimigravidaEncounter for anatomic ruowde96 weeks gestation of Laci Morgan [address] [place] [address] [address], [place], [address], [place]. tel:[phone] [facility], [address], [place], [place], [address], [place] tel: [phone] [place] Routine Care, Qvsyubthvkni73 weeks gestation of Laci Morgan [address] [place] [address] [address], [place] , [address], [place]. tel:[phone] [facility], [address], [place], [place], [address], [place] tel: [phone] [place] Pap Smear Screening, CervixRoutine Care, Fmdoqaiuvfyu24 weeks gestation of Laci Morgan [address] [place] [address] [address], [place], [address], [place]. tel:[phone] Family History Family Member Diagnosis Age At [...] Insurance type Covered alliance party ID Authorization(s) [id number] Social History Type Description Quantity Date Captured Alcohol Use Details No Caffeine Use Details No Tobacco Use Status Unknown Smoking Status Never smoker Vital Signs Date / Time: Height Weight BMI Pulse Rate Blood Pressure Temperature Respiratory Rate Body Surface Area Head Circumference BMI percentile /14:04:00 156.90 lbs 29.16 kg/meter(2) 135/67 mm[Hg] Chief Complaint And Reason For Visit Unknown Chief Complaint And Reason For Visit Reason For Referral Reason For Referral Unknown Plan Of Care Date Type Action Status Appointment Gregoria Poole BOOKED Future Order: Lab Order Pap Smear With HPV Reflex If ASCUS ( WPMPap1) Ordered Future Order: Radiology Order Complete OB Ultrasound > 14 Weeks ( [id number]) Ordered Future Order: Radiology Order Complete OB Ultrasound > 14 Weeks ( [id number]) Ordered Date Type Problem Goal Intervention Status [...]
--- OUTSIDE RECORDS SUMMARY | 2016-09-19 06:18 | XMS REPORT | Continuity of Care Document ---
Author Author [facility] Organization [facility] Address Unknown Phone Unavailable Allergies, Adverse [...] of mother - weeks gestation of - Maternal care for [...] Date Provider Care Team Members [facility], [address], [place], [place], [address], [place] tel: [phone] [place] Encntr for suprvsn of normal first preg, third trimesterEncounter for screening of weeks gestation of Laci Morgan [address] [place] [address] [address], [place], [place] , [address], [place]. tel:[phone] Referring Provider: Loy Chester [address] [place] [address] Dr Shepard, [place], [place], [address]. tel:[phone] [facility], [address], [place], [place], [address], [place] tel: [phone] [place] Encntr for suprvsn of normal first preg, third cgbnwyhxd56 weeks gestation of Laci Morgan [address] [place] [address] [address], [place], [place], [address], [place]. tel:[phone] Referring Provider: Parris Dillard [address] [place] [address] Dr Shepard, [place], [place] , [address]. tel:[phone] [facility], [address], [place], [place], [address], [place] tel: [phone] [place] [facility]trasound Maternal care for oth abnlt of cervix, third uoxvozmnm56 weeks gestation of Laci Morgan [address] [place] [address] [address], [place], [place], [address], [place]. tel:[phone] Referring Provider: Parris Dillard, [address] [place] [address] Dr Shepard, [place], [place] , [address]. tel:[phone] [facility], [address], [place], [place], [address], [place] tel: [phone] [place] Encntr for suprvsn of normal first preg, third trimesterEncounter for screening of lyxozc41 weeks gestation of Laci Morgan [address] [place] [address] [address], [place] , [address], [place]. tel:[phone] [facility] [address], [place], [address], [place] tel: [phone] [place] Encntr for suprvsn of normal first preg, third jdztaxecg50 weeks gestation of Laci Morgan [address] [place] [address] [address], [place], [address], [place]. tel:[phone] [facility], [address], [place], [address], [place] tel: [phone] [place] Encntr for suprvsn of normal first preg, third bvfctjbce34 weeks gestation of pregnancyType AB blood, Rh negative Laci Morgan [address] [place] [address] [address], [place], [address], [place]. tel: [phone] Referring Provider: Loy Chester [address] [place] [address] Dr Shepard , [place], [address]. tel:[phone] [facility], [address], [place], [address], [place] tel: [phone] [place] Encntr for suprvsn of normal first preg, second ofolskbag51 weeks gestation of Laci Morgan [address] [place] [address] [address], [place], [address], [place]. tel:[phone] [facility], [address], [place], [address], [place] tel: [phone] [place] Encntr for suprvsn of normal first preg, second weeks gestation of Laci Morgan [address] [place] [address] [address], [place], [address], [place]. tel:[phone] Referring Provider: Loy Chester [address] [place] [address] Dr Shepard, [place], [address]. tel:[phone] [facility], [address], [place], [place], [address], [place] tel: [phone] [place] Ultrasound Maternal care for oth abnlt of cervix, second trimesterEncounter for screening of weeks gestation of Laci Morgan [address] [place] [address] [address], [place], [place], [address], [place]. tel:[phone] [facility], [address], [place], [place], [address], [place] tel: [phone] [place] Routine Care, PrimigravidaEncounter for anatomic weeks gestation of Laci Morgan [address] [place] [address] [address], [place], [address], [place]. tel:[phone] [facility], [address], [place], [place], [address], [place] tel: [phone] [place] Routine Care, Xmtlazemhodr53 weeks gestation of Laci Morgan [address] [place] [address] [address], [place] , [address], [place]. tel:[phone] [facility], [address], [place], [place], [address], [place] tel: [phone] [place] Pap Smear Screening, CervixRoutine Care, Njfydodqaoif60 weeks gestation of Laci Morgan [address] [place] [address] [address], [place], [address], [place]. tel:[phone] Family History Family Member Diagnosis Age At [...] type Covered republican ID Authorization(s) [employer] CI [id number] Aet[employer] CI [id number] [employer] CI [id number] Social History Type Description Quantity Date Captured Alcohol Use Details No Caffeine Use Details Unknown Tobacco Use Status Unknown Smoking Status Never smoker Vital Signs Date / Time: Height Weight BMI Pulse Rate Blood Pressure Temperature Respiratory Rate Body Surface Area Head Circumference BMI percentile 2:44 PM 175.30 lbs 32.58 kg/meter(2) 128/80 mm[Hg] Chief Complaint And Reason For Visit Unknown Chief Complaint And Reason For Visit Reason For Referral Reason For Referral Unknown Plan Of Care Date Type Action Status Appointment Gregoria Poole BOOKED Future Order: Lab Order Pap Smear With HPV Reflex If ASCUS ( WPMPap1) Ordered Future Order: Radiology Order Complete OB Ultrasound > 14 Weeks ( [id number]) Ordered Future Order: Radiology Order Complete OB Ultrasound > 14 Weeks ( [id number]) Ordered Future Order: Radiology Order Ultrasound OB Follow-up ([id number]) Ordered Date Type Problem Goal Intervention Status [...]
--- OUTSIDE RECORDS SUMMARY | 2016-09-19 06:19 | XMS REPORT | Continuity of Care Document ---
Author Author [facility] Organization [facility] Address Unknown Phone Unavailable Allergies, Adverse [...] mother - 32 weeks gestation of - Pap Smear Screening, Cervix - Routine Care, Primigravida 10 weeks gestation of - Encntr for suprvsn of normal first preg, third trimester - Type AB blood, Rh negative - 28 weeks gestation of - Maternal care for oth abnlt of cervix, second trimester - weeks gestation of - Encounter for screening of mother - Maternal care for oth abnlt of cervix, third trimester - 34 weeks gestation of - Routine Care, Primigravida 14 weeks gestation of - Routine Care, Primigravida 17 weeks gestation of - Encounter for anatomic survey Encntr for suprvsn of normal first preg, second trimester - 20 weeks gestation of - Encntr for suprvsn of normal first preg, second trimester - 24 weeks gestation of - Encntr for suprvsn of normal first preg, third trimester - 30 weeks gestation of - Encntr for suprvsn of normal first preg, third trimester - 34 weeks gestation of - Asthma Active Procedures Procedure Date OB Visit No Charge Results Test Name Date and Time Measure Units Reference Range Abnormal Flag Comments Unknown Advance Directives Directive Yes / No Effective Date File Name Unknown Encounters Encounter Description Practice Location Reason(s) For Visit Diagnoses Date Provider Care Team Members [facility], [address], [place], [address], [place] tel: [phone] [place] Encntr for suprvsn of normal first preg, third ngmymupkp71 weeks gestation of Laci Morgan [address] [place] [address] [address], [place], [place], [address], [place]. tel:[phone] Referring Provider: Parris Dillard [address] [place] [address] Dr Shepard, [place], [place] , [address]. tel:[phone] [facility], [address], [place], [address], [place] tel: [phone] [place] Ultrasound Maternal care for oth abnlt of cervix, third lbwjeqhcw90 weeks gestation of Laci Morgan [address] [place] [address] [address], [place], [place], [address], [place]. tel:[phone] Referring Provider: Parris Dillard [address] [place] [address] Dr Shepard, [place], [place] , [address]. tel:[phone] [facility], [address], [place], [place], [address], [place] tel: [phone] [place] Encntr for suprvsn of normal first preg, third trimesterEncounter for screening of akoaqo78 weeks gestation of Laci Morgan [address] [place] [address] [address], [place], [place] , [address], [place]. tel:[phone] [facility], [address], [place], [place], [address], [place] tel: [phone] [place] Encntr for suprvsn of normal first preg, third ysqrtlrll46 weeks gestation of Laci Morgan [address] [place] [address] [address], [place], [address], [place]. tel:[phone] [facility], [address], [place], [place], [address], [place] tel: [phone] [place] Encntr for suprvsn of normal first preg, third trimesterType AB blood, Rh weeks gestation of Laci Morgan [address] [place] [address] [address], [place], [address], [place]. tel: [phone] Referring Provider: Loy Chester [address] [place] [address] Dr Shepard , [place], [place], [address]. tel:[phone] [facility], [address], [place], [address], [place] tel: [phone] [place] Encntr for suprvsn of normal first preg, second wgovcjgfi18 weeks gestation of Laci Morgan [address] [place] [address] [address], [place], [address], [place]. tel:[phone] [facility], [address], [place], [place], [address], [place] tel: [phone] [place] Encntr for suprvsn of normal first preg, second qcvpoeygb60 weeks gestation of Laci Morgan [address] [place] [address] [address], [place], [address], [place]. tel:[phone] Referring Provider: Loy Chester [address] [place] [address] Dr Shepard, [place], [address]. tel:[phone] [facility], [address], [place], [address], [place] tel: [phone] [place] Ultrasound Maternal care for oth abnlt of cervix, second lmzjguutr26 weeks gestation of pregnancyEncounter for screening of mother Laci Morgan [address] [place] [address] [address], [place], [address], [place]. tel:[phone] [facility], [address], [place], [place], [address], [place] tel: [phone] [place] Routine Care, Wvywxurpqtrm12 weeks [facility] for an[facility] survey [address], [place], [address], [place]. tel:[phone] [facility], [address], [place], [place], [address], [place] tel: [phone] [place] Routine Care, Hibpczxdzkbr45 weeks gestation of [address], [place] , [address], [place]. tel:[phone] [facility], [address], [place], [place], [address], [place] tel: [phone] [place] Pap Smear Screening, CervixRoutine Care, Zvyyjucedobl93 weeks gestation of [address], [place], [address], [place]. tel:[phone] Family History Family Member Diagnosis Age At [...] Covered green party ID Authorization(s) [employer] CI [id number] Aet[employer] CI [id number] Social History Type Description Quantity Date Captured Alcohol Use Details No Caffeine Use Details Unknown Tobacco Use Status Unknown Smoking Status Never smoker Bhavik-19-2017 Vital Signs Date / Time: Height Weight BMI Pulse Rate Blood Pressure Temperature Respiratory Rate Body Surface Area Head Circumference BMI percentile 3:25 PM 174.50 lbs 32.43 kg/meter(2) 138/78 mm[Hg] Chief Complaint And Reason For Visit Unknown Chief Complaint And Reason For Visit Reason For Referral Reason For Referral Unknown Plan Of Care Date Type Action Status Appointment Gregoria Poole BOOKED Future Order: Lab Order Pap Smear With HPV Reflex If ASCUS ( WPMPap1) Ordered Future Order: Radiology Order Complete OB Ultrasound > 14 Weeks ( [id number]) Ordered Future Order: Radiology Order Complete OB Ultrasound > 14 Weeks ( [id number]) Ordered Future Order: Radiology Order Ultrasound OB Follow-up ([id number]) Ordered Date Type Problem Goal Intervention Status [...]
--- OUTSIDE RECORDS SUMMARY | 2016-09-19 06:19 | XMS REPORT | Continuity of Care Document ---
Author Author [facility] [place] Organization [facility] [place] Address Unknown Phone Unavailable Allergies, Adverse Reactions, Alerts Substance Reaction Severity Status No Known Drug Allergies Unknown Active Medications Medication Instructions Dosage Effective Dates (start - stop) Status Comments VITAMINS (unknown strength) take 1 tablet by oral route every day - Active Problems Condition Effective Dates (start - stop) Clinical Status Routine Care, Primigravida 14 weeks gestation of - Pap Smear Screening, [...] Date Provider Care Team Members [facility] [place], [address], [place], [place], [address], tel: [phone] [place] Routine Care, Bmunxbgklmtf51 weeks gestation of [address] [place] , [address], [place]. tel:[phone] [facility] [place], [address], [place], [place], [address], [place] tel: [phone] [place] Pap Smear Screening, CervixRoutine Care, Bzlhnqapcwbg56 weeks gestation of [address], [place], [place], [address], [place]. tel:[phone] Family History Family Member Diagnosis Age At [...] Unknown Payers Payer name Insurance type Covered republican ID Authorization(s) [facility] Social History Type Description Quantity Date Captured Alcohol Use Details No Caffeine Use Details No Tobacco Use Status Unknown Smoking Status Never smoker Vital Signs Date / Time: Height Weight BMI Pulse Rate Blood Pressure Temperature Respiratory Rate Body Surface Area Head Circumference BMI percentile /08:42:00 143.20 lbs 26.62 kg/meter(2) 132/73 mm[Hg] Chief Complaint And Reason For Visit [...]
--- OUTSIDE RECORDS SUMMARY | 2016-09-19 06:19 | XMS REPORT | Continuity of Care Document ---
Author Author [facility] [employer] [facility] Organization [facility] Address Unknown Phone Unavailable Allergies, Adverse Reactions, [...] Date Provider Care Team Members [facility], [address], [place], [place], [address], [place] tel: [phone] [place] Encntr for suprvsn of normal first preg, second giyhttrtm94 weeks gestation of Laci Granado. [address] [place] [address] [address], [place], [place], [address], [place]. tel:[phone] Referring Provider: Loy Chester [address] [place] [address] [address], [place], [place], [address]. tel:[phone] [facility], [address], [place], [place], [address], [place] tel: [phone] [place] Ultrasound Maternal care for oth abnlt of cervix, second trimesterEncounter for screening of plhykr55 weeks gestation of [address], [place], [place], [address], [place]. tel:[phone] [facility], [address], [place], [place], [address], [place] tel: [phone] [place] Routine Care, PrimigravidaEncounter for anatomic dgycdm96 weeks gestation of [address], [place], [place], [address], [place]. tel:[phone] [facility], [address], [place], [place], [address], [place] tel: [phone] [place] Routine Care, Gavdlzbajmpk19 weeks gestation of [address], [place], [place] , [address], [place]. tel:[phone] [facility], [address], [place], [place], [address], [place] tel: [phone] [place] Pap Smear Screening, CervixRoutine Care, Thmiimpwhtsc59 weeks gestation of [address], [place], [place], [address], [place]. tel:[phone] Family History Family Member Diagnosis Age At [...] Insurance type Covered green party ID Authorization(s) Edwin [id number] [facility] Social History Type Description Quantity Date [...] Complete OB Ultrasound > 14 Weeks ( [id number]) Ordered Future Order: Lab Order Pap Smear [...]
--- OUTSIDE RECORDS SUMMARY | 2016-09-19 06:19 | XMS REPORT | Continuity of Care Document ---
Author Author [facility] Organization [facility] Address Unknown Phone Unavailable Allergies, Adverse [...] - Type AB blood, Rh negative - Pap Smear Screening, Cervix - Routine [...] Procedures Procedure Date OB Visit No Charge Injection Administration Rhophylac 100 Units Antibody Screen, RBC Glucose test Hemoglobin count, colorimetric Hematocrit blood count Venpnctr fngr/heel/ear stick routne Results Test Name Date and Time Measure Units Reference Range Abnormal Flag Comments Panel Description: Glucose [Mass/volume] in Serum or Plasma --1 hour post 50 g glucose PO GLUCOSE, GESTATIONAL SCREEN (50G)-140 CUTOFF 12:01:00 79 mg/dL <140 N Test performed at [facility] [employer] [address]Director: FABIAN CHRISTINE DO,MPH Panel Description: HEMOGLOBIN + HEMATOCRIT HEMOGLOBIN 12:01:00 11.4 g/dL 11.7-15.5 L HEMATOCRIT 12:01:00 34.6 % 35.0-45.0 L Test performed at [facility] [employer] [place] [id number]: FABIAN CHRISTINE DO,MPH Panel Description: ANTIBODY SCREEN, RBC W/REFL ID, TITER AND AG ANTIBODY SCREEN, RBC W/REFL ID, TITER AND AG 12:01:00 NO ANTIBODIES DETECTED N Reference range No antibodies detected This assay is a screening test for the detection of red blood cell antibodies. The test is not to be used for pretransfusion screening or for the medical management of an alloimmunized . REPORT COMMENT: FASTING:NOTest performed at [facility] [employer] [address] [id number]: FABIAN CHRISTINE DO,MPH Advance Directives Directive Yes / No Effective Date File Name Unknown Encounters Encounter Description Practice Location Reason(s) For Visit Diagnoses Date Provider Care Team Members [facility], [address], [place], [place], [id number], [place] tel: [phone] [facility] for suprvsn of normal first preg, third weeks gestation of Laci Granado[address] [place], [place], [id number], [place]. tel:[phone] [facility], [address], [place], [place], [id number], [place] tel: [phone] [facility] for suprvsn of normal first preg, third [id number] weeks gestation of pregnancyType AB blood, Rh negative Laci Morgan [address] [place] [address] [place], [place], [id number], [place]. tel: [phone] Referring Provider: Loy Chester [address] [place] [address] Dr Shepard , [place], [id number]. tel:[phone] [facility], [address], [place], [place], [id number], [place] tel: [phone] [facility] for suprvsn of normal first preg, second weeks gestation of Laci Morgan [address] [place] [address] [place], [place], [id number], [place]. tel:[phone] [facility], [address], [place], [place], [id number], [place] tel: [phone] [facility] for suprvsn of normal first preg, second weeks gestation of Laci Morgan [address] [place] [address] [place], [place], [id number], [place]. tel:[phone] Referring Provider: Loy Chester [address] [place] [address] Dr Shepard, [place], [id number]. tel:[phone] [facility], [address], [place], [place], [id number], [place] tel: [phone] [facility] Maternal care for oth abnlt of cervix, second trimesterEncounter for screening of txgbgu79 weeks gestation of Laci Morgan [address] [place] [address] [place], [place], [id number], [place]. tel:[phone] [facility] [address], [place], [place], [id number], [place] tel: [phone] [facility] Routine Care, PrimigravidaEncounter for anatomic stzoop46 weeks gestation of Laci Morgan [address] [place] [address] [place], [place], [id number], [place]. tel:[phone] [facility], [address], [place], [place], [id number], [place] tel: [phone] [facility]ine Care, Lreaxaxrvnsy99 weeks gestation of [address] , [address], [place], [place] , [id number], [place]. tel:[phone] [facility], [address], [place], [place], [address], [place] tel: [phone] [facility] Pap Smear Screening, CervixRoutine Care, Dhbhnnakrict94 weeks gestation of [address], [place], [place], [address], [place]. tel:[phone] Family History Family Member Diagnosis Age At [...] Provider Payers Payer name Insurance type Covered democrat ID Authorization(s) [facility] [id number] [id number] Social History Type Description Quantity Date Captured Alcohol Use Details No Caffeine Use Details No Tobacco Use Status Unknown Smoking Status Never smoker Vital Signs Date / Time: Height Weight BMI Pulse Rate Blood Pressure Temperature Respiratory Rate Body Surface Area Head Circumference BMI percentile /11:00:00 166.80 lbs 31.00 kg/meter(2) 136/84 mm[Hg] Chief Complaint And Reason For Visit Unknown Chief Complaint And Reason For Visit Reason For Referral Reason For Referral Unknown Plan Of Care Date Type Action Status Appointment Gregoria Poole BOOKED Future Order: Lab Order Pap Smear With HPV Reflex If ASCUS ( [id number]) Ordered Future Order: Radiology Order Complete OB Ultrasound > 14 Weeks ( [id number]) Ordered Future Order: Radiology Order Complete OB Ultrasound > 14 Weeks ( [id number]) Ordered Date Type Problem Goal Intervention Status [...]
[2016-09-19] MEDS ORDERED: ACETAMINOPHEN 500 MG TABLET PO PRN ×2 (06:30→23:30)
[2016-09-19] MEDS ORDERED: CALCIUM CARBONATE 500mg Chewable TAB PO PRN ×2 (06:30→23:30)
[2016-09-19] MEDS ORDERED: MAG-AL + SIM LIQUID 30 ML UDC PO PRN (06:30)
[2016-09-19] MEDS ORDERED: LIDOCAINE 1% (10mg/ml) 2ml SDV ID PRN (06:30)
[2016-09-19] MEDS: LR 1,000 ML IV PRN ×5 (06:36→22:30)
[2016-09-19] MEDS ORDERED: PREN1TAB73 PO (06:38)
[2016-09-19 06:40] LABS: HCT - HEMATOCRIT 36.3 % (36-46); MEAN CORPUSCULAR HGB 30.4 UUG (26-34); MEAN CORPUSCULAR HGB CONC(MCHC 33.1 GM/DL (31-37); MEAN CORPUSCULAR VOLUME 91.9 UM3 (80-100); MEAN PLATELET VOLUME 11.2 UM3 (9.4-12.4); RED BLOOD COUNT 3.95 M/MM3 (4.00-5.20); WBC - WHITE BLOOD COUNT 13.3 T/MM3 (4.5-11.0)
[2016-09-19 06:41] VITALS: BP 137/83; PULSE 100; RESP 18; TEMP 98.2; O2SAT 99
[2016-09-19] MEDS: D5LR 1,000 ML IV PRN ×2 (06:58→17:05)
[2016-09-19] MEDS ORDERED: OXYTOCIN 30 UNIT in D5LR 500 ML PRN (07:00)
--- NOTE | 2016-09-19 08:41 | ANESOB ---
Epidural/ Date/Time DATE: 09/19/16 TIME: 08:38 Preop Diagnosis Procedure: Labor Epidural Height: 5 ' 3.00 " Weight: 85.900 kg BMI: kg/m2 Temperature: 98.2 Blood Pressure: 137/83 Heart Rate: 100 Respiratory Rate: 18 SaO2: 99 NPO since: 0540 P:0 Medications & Allergies Inpatient Medications Current Medications Medications (Trade) Dose Ordered Sig/Pedro Pablo Start Time Stop Time Status Last Admin Dose Admin Lidocaine HCl 0.2 mg 0.2 mg PRN PRN 09/19/16 06:30 Lactated Ringer's (Lactated Ringers) 1,000 ml @ 0 mls/hr Q0M PRN 09/19/16 06:16 09/19/16 08:35 0 MLS/HR Acetaminophen (Tylenol Extra Strength) 1-2 TABS = 500-1,000 MG Q4H PRN 09/19/16 06:30 Al Hydroxide/Mg Hydroxide (Maalox) 30 ml Q4H PRN 09/19/16 06:30 Calcium Carbonate 1-2 TABS Q2H PRN 09/19/16 06:30 Dextrose/Lactated Ringer's 1,000 ml @ 0 mls/hr Q0M PRN 09/19/16 07:00 09/19/16 06:58 0 MLS/HR Oxytocin/Dextrose/ Lactated Ringer's (Pitocin/D5lr) 503 ml @ 0 mls/hr Q0M PRN 09/19/16 07:00 09/19/16 06:59 0 MLS/HR Pnv95/Ferrous Fumarate/FA ( Tablet) 1 Each Tablet, 1 TAB PO DAILY, ( Reported) Last Taken: on 09/19/16 0600 Coded Allergies: No Known Allergies (Unverified , 09/19/16) Medical/Surgical History Anesthesia PMH: Reports: Asthma (uses inhaler q2mo), , Denies: * Diabetes, Anesthesia Reactions, Malignant Hyperthermia Smoking Status: Never smoker Substance Use Type: does not use Alcohol Intake: none Anesthesia Adverse Reactions: FOUND none Family Hx of Anesthesia Advers: none Pertinent Findings Laboratory Tests 09/19/16 06:32 Physical Exam Respiratory: Lungs clear Cardiovascular: Regular rate, rhythm Airway Assessment Mallampati Score: II TMD: 3 Fingerbreadths Neck Extension: Good Overall Assessment: May Be Diff Intubation ASA: 2 Discussion Discussed risks/options/alternatives of anesthesia. Patient consents. Nursing pain assessment noted. Attestation Statement Prior to the delivery of any anesthetic medication, I examined the patient, developed the plan, obtained the patient's consent and discussed the risk and benefits of the procedure with the patient/guardian. If the note happens to be signed after anesthesia start time, it is only due to providing efficient care of the patient and documenting at a time when the computer is available. FAMILIA MACK [employer] STUDENT Sep 19, 2016 08:41
[2016-09-19] MEDS ORDERED: DiphenhydrAMINE 50 MG/ML INJECTION IV PRN ×2 (19:00→23:15)
[2016-09-19] MEDS ORDERED: ONDANSETRON 4mg/2ml INJECTION IV PRN ×2 (19:00→23:15)
[2016-09-19] MEDS ORDERED: NALOXONE 0.4mg/ml INJECTION IV PRN ×2 (19:00→23:15)
[2016-09-19] MEDS ORDERED: ROPIVACAINE 1% 200 MG, SUFENTANIL 50 MCG in NORMAL SALINE 80 ML EPI PRN (19:00)
[2016-09-19] MEDS ORDERED: FAMOTIDINE 20mg IVPB 50 ML IV SCH (21:30)
[2016-09-19] MEDS ORDERED: CITRIC ACID/SODIUM CITRATE 30 ML PO ONE (21:30)
[2016-09-19] MEDS ORDERED: CEFAZOLIN 2 GM in D5W 50ml 2 GM in D5W 50 ML IV ONE ×2 (21:30)
[2016-09-19] MEDS ORDERED: LIDOCAINE 2%/EPI 1:200,000 20ml SDV ONE (21:39)
[2016-09-19] MEDS ORDERED: MORPHINE SULFATE PF 5mg/10ml VL (DURAMORPH) ONE (21:39)
[2016-09-19 23:04] VITALS: RESP 18; O2SAT 97
[2016-09-19] MEDS ORDERED: NALBUPHINE 10mg/ml INJECTION IV PRN (23:15)
[2016-09-19] MEDS: D5LR 1,000 ML IV SCH (23:26)
[2016-09-19] MEDS: OXYTOCIN 30 UNIT in D5LR 500 ML IV SCH (23:26)
[2016-09-19] MEDS ORDERED: HYDROCORTISONE 2.5% CREAM 30 GM RECTALLY PRN (23:30)
[2016-09-19] MEDS ORDERED: DiphenhydrAMINE 25 MG CAPSULE PO PRN (23:30)
[2016-09-19] MEDS ORDERED: MILK OF MAGNESIA 30 ML SUSP PO PRN (23:30)
[2016-09-20 01:00] VITALS: RESP 18; O2SAT 99
[2016-09-20] MEDS: IBUPROFEN 800 MG TABLET PO PRN ×2 (01:27→13:33)
[2016-09-20 04:00] VITALS: BP 130/73; PULSE 83; RESP 16; TEMP 98.7; O2SAT 99
--- NOTE | 2016-09-20 07:51 | NUR ---
Rh FACTOR CONSULT: Mother Blood Type = AB neg Child Blood Type = A neg Mom is not a candidate for Rho D Immunglobulin administration. Thank you.
[2016-09-20 08:00] VITALS: BP 129/71; PULSE 92; RESP 16; TEMP 98.4; O2SAT 100
--- NOTE | 2016-09-20 08:21 | ANESPO ---
Post-Op Note Date 09/20/16 Time: 08:20 Status Pt Participated in Evaluation: Pt participated in person Vital Signs Date Time Temp Pulse Resp B/P Pulse Ox O2 Delivery O2 Flow Rate FiO2 09/20/16 01:00 18 99 09/19/16 06:41 98.2 100 137/83 Room Air Respiratory Function: Airway patent, Regular respirations Cardiovascular Function: Regular pulse Mental Status: Alert/oriented Pain Level Intensity: 0 Hydration: Taking po fluids Complications during Recovery None apparent Follow-Up Instructions Instructions Per Surgeon EKATERINA MELO CRNA Sep 20, 2016 08:21
[2016-09-20 08:36] LABS: HCT - HEMATOCRIT 31.8 % (36-46); HGB - HEMOGLOBIN 10.8 GM/DL (12-16); MEAN CORPUSCULAR VOLUME 91.4 UM3 (80-100); MEAN PLATELET VOLUME 11.7 UM3 (9.4-12.4); RED BLOOD COUNT 3.48 M/MM3 (4.00-5.20); WBC - WHITE BLOOD COUNT 15.7 T/MM3 (4.5-11.0)
[2016-09-20] MEDS: DOCUSATE CALCIUM 240 MG CAPSULE PO SCH (08:37)
[2016-09-20] MEDS: SIMETHICONE 80 MG CHEWABLE TABLET PO CHEW SCH ×3 (08:37→19:18)
[2016-09-20] MEDS: HYDROCODONE/APAP 5 mg/325 mg TABLET PO PRN ×3 (08:37→19:28)
[2016-09-20] MEDS: PRENATAL VITAMIN TABLET PO SCH (08:37)
[2016-09-20] MEDS: D5LR 1,000 ML IV SCH ×2 (08:38→19:26)
[2016-09-20] MEDS: OXYTOCIN 30 UNIT in D5LR 500 ML IV SCH (08:39)
--- NOTE | 2016-09-20 11:06 | PNPDOC ---
Prog Note 09/20/16 vss af no c/o good pain control lab reviewed cont on current care path. q&a-GAURAV Gordon MD Sep 20, 2016 11:06
[2016-09-20 12:00] VITALS: BP 127/73; PULSE 84; RESP 16; TEMP 98.2; O2SAT 100
[2016-09-20 17:14] VITALS: BP 124/67; PULSE 85; RESP 16; TEMP 97.9; O2SAT 99
[2016-09-20 20:45] VITALS: BP 125/75; PULSE 85; RESP 18; TEMP 98.3; O2SAT 99
--- NOTE | 2016-09-20 21:00 | NUR ---
Progress Note Pt dangled, stood at bedside, and ambulated to bathroom with RN supervision and denied dizziness. RN educated pt about pericare and pad changes. Pt verbalized understanding. RN provided pericare, skin care, and assisted with pad change. Underpad changed. Will continue to monitor per plan of care.
[2016-09-21] VITALS (7 sets, daily range): BP systolic 120–144; BP diastolic 72–88; PULSE 77–97; RESP 16–18; TEMP 97.4–98.2; O2SAT 98–100
[2016-09-21] MEDS: IBUPROFEN 800 MG TABLET PO PRN ×3 (00:16→18:29)
[2016-09-21] MEDS: HYDROCODONE/APAP 5 mg/325 mg TABLET PO PRN ×4 (00:16→18:29)
[2016-09-21] MEDS: SIMETHICONE 80 MG CHEWABLE TABLET PO CHEW SCH ×5 (00:16→22:22)
--- NOTE | 2016-09-21 02:26 | NUR ---
Shift Summary Pt's VS stable. Fundus firm, minimal lochia, and voiding w/o difficulty. Pt tolerating po fluids and regular diet. Adequate output. Sparks and IV site DC. Pt showered on this shift. Pain controlled with po pain meds as ordered, Motrin and Saltese. Pt performing cares for self and baby with help of FOB at bedside. Pt up ad hermann in room. Pt attentive to infant needs and bonding appropriately. Pt baby well in cradle hold ad hermann. Will continue to monitor per plan of care.
--- NOTE | 2016-09-21 02:26 | NUR ---
Chart Check 24 hour chart check completed
[2016-09-21] MEDS: PRENATAL VITAMIN TABLET PO SCH (08:38)
[2016-09-21] MEDS: DOCUSATE CALCIUM 240 MG CAPSULE PO SCH (08:39)
--- NOTE | 2016-09-21 10:52 | PNPDOC ---
MC Prog Note 09/21/16 vss af incision c/d/i baby on bili light q&a-krb GAURAV CHEUNG MD Sep 21, 2016 10:52
--- NOTE | 2016-09-21 15:23 | NUR ---
Shift summary Patient up and about caring for self and baby. Lochia small amount rubra. Voiding and passing gas. Incisional and cramping pain controlled with ibuprofen and 2 [place] at a time. baby at frequent intervals. Tolerating regular diet.
[2016-09-22 00:45] VITALS: BP 128/74; PULSE 97; RESP 16; TEMP 98.4; O2SAT 98
[2016-09-22] MEDS: HYDROCODONE/APAP 5 mg/325 mg TABLET PO PRN ×3 (01:04→10:05)
--- NOTE | 2016-09-22 01:59 | NUR ---
Shift summary: VSS. Pt. is up ad hermann and performing self cares. Pt. reports small bleeding. Incision is dry, intact and open to air. Pain controlled with Ibuprofen 800 mg and Robinson 5/325 mg. FOB and family supportive. Parents attentive to needs.
[2016-09-22] MEDS: DOCUSATE CALCIUM 240 MG CAPSULE PO SCH (06:18)
[2016-09-22] MEDS: PRENATAL VITAMIN TABLET PO SCH (06:18)
[2016-09-22] MEDS: IBUPROFEN 800 MG TABLET PO PRN (06:19)
--- NOTE | 2016-09-22 08:22 | PNPDOC ---
Progress Note PPD3 Rubella: Immune GBS: Negative Blood Type:AB neg Subjective 09/22/16 Lochia: Minimal Pain: Controlled Voiding: Voiding Nausea and Vomiting: No Nausea/Vomiting Objective Vital Signs Date Time Temp Pulse Resp B/P Pulse Ox O2 Delivery O2 Flow Rate FiO2 09/22/16 00:45 98.4 97 16 128/74 98 Room Air General: Alert and Oriented Abdomen: Fundus Firm, Non-tender Incision: Clean/Dry/Intact, No Erythema Edema: None Assessment SP, Primary C/S Plan Routine Care, Discharge Home, Continue PNV GIORGIO HOWELL MD Sep 22, 2016 08:22
[2016-09-22] MEDS ORDERED: IBUP-1547 PO (08:28)
[2016-09-22] MEDS ORDERED: DOCU-168 PO (08:28)
[2016-09-22] MEDS ORDERED: HYDR-4246 PO (08:28)
--- NOTE | 2016-09-22 08:35 | OPNOTEF ---
DATE OF SURGERY: 09/19/2016 PREOPERATIVE DIAGNOSIS 1. 21-year-old female G1, P0, 40.4 weeks gestational age. 2. Cervical mass by sono and palpation. 3. Pitocin induction for postdates gestation. 4. Artificial rupture of membranes. 5. Intrauterine pressure monitor. POSTOPERATIVE DIAGNOSIS 1. Occiput posterior presentation. 2. Female , Apgars, 3382 g. PROCEDURE: Primary low transverse section for arrest of dilation at 2.5 cm. SURGEON: Loy Aguero MD HEALTH TYPE TECHNICIAN: Miguel Chacko, Surgical Scrub EBL: 800 ml ANESTHESIA: Epidural catheter dosing by Candido Grajeda CRNA COMPLICATIONS: None. BRIEF HISTORY The patient was induced for postdates. Her cervix was initially 1 cm. She made it to 2.5 cm but never dilated further. IUPM documented adequate contractions. There was repetitive variable decelerations. Pitocin reached a maximum of 30 milliunits a minute and then was turned off and then back on and off depending on heart tones. She never progressed past 2.5 cm dilated. Upon delivery, the infant was in the straight OP presentation. DESCRIPTION OF PROCEDURE After adequate epidural anesthesia, the patient was prepped and draped in the left lateral decubitus position. A Pfannenstiel skin incision was made with a sharp knife and carried down the fascia, which was incised transversely with the Ludwig scissors. The rectus fascia was bluntly and sharply dissected off the rectus muscle. The rectus muscle was divided, and the peritoneum was isolated, elevated, entered with the Metzenbaum scissors and extended cephalad and caudad. The bladder blade was then inserted. The lower vesicouterine fold of the peritoneum was isolated and incised transversely. The bladder was bluntly dissected off the lower uterine segment. The bladder blade was reinserted. Then using a sharp knife, a transverse incision was made in the lower uterine segment. This was extended with my fingers. A female infant was delivered from the vertex position without difficulty. It was straight OP upon entering the uterus and then it was rotated to transverse and elevated out of the pelvis. was bulb suctioned after delivery of the head and then again after delivery of the body. Cord was doubly clamped and cut and the was received by Dr. Cruz Harrington of pediatrics. The placenta was expressed manually and was intact. The uterus was then allowed to fall upon the external abdominal wall. The endometrial cavity was cleansed using moist lap sponges. The uterus was closed using 0-Monocryl in a running locking fashion. Hemostasis was confirmed. The bladder flap was then reapproximated with the visceral peritoneum using 3-0 Vicryl in a running nonlocking fashion. The posterior cul-de-sac was cleansed of old blood clots and the tubes and ovaries were examined and found to be normal in size, shape and appearance. After hemostasis was again confirmed, the uterus was then carefully returned to the abdominal cavity. The abdomen was then closed in layers. The peritoneum was closed using 2-0 Vicryl in running nonlocking fashion. The fascia was closed using 0-Vicryl in a running nonlocking fashion bilaterally from the lateral aspects medially. Hemostasis was achieved with the subcutaneous tissue and then the skin was closed with a 3-0 undyed Vicryl in a subcuticular manner. The patient tolerated the procedure well and went to the recovery room in stable condition. Pad, sponge and needle counts were correct and urine postop was clear and free flowing. MTDD
[2016-09-22 09:00] VITALS: BP 131/71; PULSE 88; RESP 14; TEMP 97.8; O2SAT 99
[2016-09-22] MEDS: SIMETHICONE 80 MG CHEWABLE TABLET PO CHEW SCH (10:05)
== END 2016-09-22 10:42 | disposition home or self-care (01) | DRG 766 ==
LOC: MC 09-19 06:13
PROVIDERS: ADMIT Obstetrics & Gynecology; ATTEND Obstetrics & Gynecology
PROC: 3E033VJ Introduction of Other Hormone into Peripheral Vein, Percutaneous Approach (ICD-10-PCS; 2016-09-19)
PROC: 10907ZC Drainage of Amniotic Fluid, Therapeutic from Products of Conception, Via Natural or Artificial Opening (ICD-10-PCS; 2016-09-19)
PROC: 10D00Z1 Extraction of Products of Conception, Low, Open Approach (ICD-10-PCS; principal; 2016-09-19 22:07)
DX: O62.0 Primary inadequate contractions (principal); O76 Abnormality in fetal heart rate and rhythm complicating labor and delivery; O48.0 Post-term pregnancy; O34.43 Maternal care for other abnormalities of cervix, third trimester; O32.8XX0 Maternal care for other malpresentation of fetus, not applicable or unspecified; O99.52 Diseases of the respiratory system complicating childbirth; J45.909 Unspecified asthma, uncomplicated; Z3A.40 40 weeks gestation of pregnancy; Z37.0 Single live birth
CPT/HCPCS: 36415; 85027; 86850; 86870; 86900; 86901